=== PATIENT | male | born 1985 | race Caucasian/White ===

== ENCOUNTER 2017-04-24 11:43 | Outpatient (CLI) | payer BC ==
[2017-04-24 19:30] LABS: HCT - HEMATOCRIT 45.7 % (42.0-52.0); MEAN CORPUSCULAR HGB CONC 32.8 g/dL (32.0-36.0); MEAN CORPUSCULAR VOLUME 85.2 fL (80.0-94.0); MEAN PLATELET VOLUME 7.6 fL (7.4-11.4); RED BLOOD COUNT 5.37 10^6/uL (4.70-6.10); RED CELL DISTRIBUTION WIDTH 13.3 % (12.0-15.0)
[2017-04-24 22:03] LABS: WHITE BLOOD COUNT 9.1 x10^3/uL (4.8-10.8)
[2017-04-26 13:51] LABS: ANA SCREEN NEGATIVE (NEGATIVE)
== END 2017-04-24 11:44 | disposition home or self-care (01) ==
LOC: LAB.N 11:43
PROVIDERS: ATTEND Physician Assistant
DX: M79.643 Pain in unspecified hand (principal)
CPT/HCPCS: 36415; 85651; 86038; 86140; 86200; 86430

== ENCOUNTER 2017-04-24 14:02 | Outpatient (CLI) | payer BC ==
--- NOTE | 2017-04-25 09:18 | XRAY Report ---
BILATERAL THREE-VIEW HANDS: 04/24/2017 CLINICAL INDICATION: Bilateral hand pain. FINDINGS: AP, lateral, oblique views of the bilateral hands were obtained. There is mild osteoarthr itis at the right 1st carpometacarpal joint. There is no evidence of fracture or dislocation. The o ther joint spaces are preserved. IMPRESSION: MILD OSTEOARTHRITIS AT THE RIGHT 1ST CARPOMETACARPAL JOINT. JOB #: [id number] EXT JOB #:[id number]
== END 2017-04-24 14:03 | disposition home or self-care (01) ==
LOC: DI.N 14:02
PROVIDERS: ATTEND Physician Assistant
DX: M18.0 Bilateral primary osteoarthritis of first carpometacarpal joints (principal)

== ENCOUNTER 2019-05-15 10:26 | Outpatient (CLI) | payer BC ==
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
== END 2019-05-15 10:27 | disposition home or self-care (01) ==
LOC: DI 10:26
PROVIDERS: ATTEND Physician Assistant
DX: R07.89 Other chest pain (principal)
CPT/HCPCS: 71045; 71120

== ENCOUNTER 2019-11-06 23:05 | Emergency (ER) | payer OTHER, BC ==
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
[2019-11-07 02:32] VITALS: BP 138/102
[2019-11-07] MEDS ORDERED: ACETAMINOPHEN 325 MG TABLET PO STA (02:41)
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
== END 2019-11-07 03:37 | disposition home or self-care (01) ==
LOC: ED 23:05
DX: S06.0X9A Concussion with loss of consciousness of unspecified duration, initial encounter (principal); S16.1XXA Strain of muscle, fascia and tendon at neck level, initial encounter; V43.52XA Car driver injured in collision with other type car in traffic accident, initial encounter; W22.11XA Striking against or struck by driver side automobile airbag, initial encounter; Y92.410 Unspecified street and highway as the place of occurrence of the external cause; Y99.0 Civilian activity done for income or pay
CPT/HCPCS: 1040M; 70450; 72125; 99284; A9270

== ENCOUNTER 2020-06-05 22:34 | Emergency (ER) | payer BC ==
--- NOTE | 2020-06-05 22:38 | ED Physician Documentation ---
PD HPI ABD PAIN - Stated complaint Stated Complaint: ABD PX - History obtained from History obtained from: Patient - History of Present Illness Timing - onset: How many weeks ago (2-3 weeks) Timing - duration: Weeks (He had been having intermittent right upper quadrant pain after eating for 2 to 3 weeks. He had an ultrasound showing gallstones with minimal wall thickening. He has a surgical consult in the office for this coming week. However he has had increased pain and unable to eat the last wk) Timing - details: Gradual onset, Still present (Much increased and consistent symptoms for the last several days to a week and now 3 days of jaundice. He has been and unable to eater drink much fluids even due to the pain) Quality: Aching, Sharp, Pain Location: RUQ, Epigastric Radiation: Left shoulder, Upper back Improved by: Laying still. No: Eating Worsened by: Eating, Moving, Palpation. No: Breathing Associated symptoms: Nausea. No: Fever, Vomiting, Diarrhea, Dysuria Similar symptoms before: Has not had sx before Recently seen: Clinic (seen by urgent care ? and had U/S at [facility] showing gallstones with some wall thickening. Consult with GI and given referral to General Surgery.) Review of Systems Constitutional: reports: Myalgias, Fatigue. denies: Fever, Chills Nose: denies: Rhinorrhea / runny nose, Congestion Throat: denies: Sore throat Cardiac: denies: Chest pain / pressure Respiratory: denies: Cough GI: reports: Abdominal Pain, Nausea. denies: Abdominal Swelling, Vomiting, Diarrhea, Bloody / black stool Skin: denies: Rash, Lesions Musculoskeletal: denies: Neck pain, Back pain Neurologic: reports: Generalized weakness. denies: Near syncope PD PAST MEDICAL HISTORY - Past Medical History Cardiovascular: None Respiratory: None Neuro: None Endocrine/Autoimmune: None GI: None (just recent Dx of gallstone with biliary colic symptoms) - Present Medications Home Medications: Ambulatory Orders Medication Instructions Recorded Confirmed Embrel 150 mg PO 11/06/19 - Allergies Allergies/Adverse Reactions: Allergies Allergy/AdvReac Type Severity Reaction Status Date / Time No Known Drug Allergies Allergy Verified 06/05/20 22:48 PD ED PE NORMAL - Vitals Vital signs reviewed: Yes - General General: Alert and oriented X 3, Well developed/nourished, Other (appears uncomfortable upper abd pain) - HEENT HEENT: PERRL (icteric eyes), EOMI, Pharynx benign - Neck Neck: Supple, no meningeal sign, No adenopathy - Cardiac Cardiac: RRR, No murmur - Respiratory Respiratory: Clear bilaterally - Abdomen Abdomen: Soft, Non distended, No organomegaly, Other (decreased bowel sounds. He is moderately tender with guarding RUQ and epigastric area. Positive percussion tenderness and mild rebound. ) - Derm Derm: Warm and dry. No: Normal color (notable jaundice) - Extremities Extremities: No edema, No calf tenderness / cord - Neuro Neuro: Alert and oriented X 3, No motor deficit, Normal speech Results - Vitals Vitals: Vital Signs - 24 hr 06/05/20 06/06/20 22:40 01:00 Temperature 36.5 C Heart Rate 70 49 L Respiratory 17 14 Rate Blood Pressure 146/100 H 133/94 H O2 Saturation 98 98 Oxygen O2 Source Room air - Labs Labs: Laboratory Tests 06/05/20 06/05/20 23:45 23:45 WBC 5.8 RBC 5.03 Hgb 15.5 Hct 43.8 MCV 87.1 MCH 30.8 MCHC 35.4 RDW 12.3 Plt Count 243 MPV 9.2 Neut # (Auto) 3.0 Lymph # (Auto) 1.9 [place] # (Auto) 0.6 Eos # (Auto) 0.3 Baso # (Auto) 0.1 Absolute Nucleated RBC 0.00 Nucleated RBC % 0.0 Sodium 137 Potassium 3.7 Chloride 102 Carbon Dioxide 25 Anion Gap 10.0 BUN 12 Creatinine 0.9 Estimated GFR (MDRD) 96 Glucose 93 Calcium 9.3 Magnesium 2.2 Total Bilirubin 6.6 H Direct Bilirubin 4.0 H Indirect Bilirubin 2.6 AST 229 H ALT 628 H Alkaline Phosphatase 200 H Total Protein 7.8 Albumin 4.3 Globulin 3.5 Albumin/Globulin Ratio 1.2 Lipase 40 - Rads (name of study) abd U/S Radiology: Prelim report reviewed (acute cholecystitis with stones and sludge. Nonmobile gallstone within the bladder neck. wall 5 mm thickened with some pericholecystic fluid. CBD mildly dilated 7mm.), See rad report PD MEDICAL DECISION MAKING - ED course Complexity details: reviewed results (showing acute cholecystitis with CBD dilated at 7 mm. Presume ductal blockage. ), re-evaluated patient, considered differential (cholecystitis symptoms with now jaundice. Consider ductal stone/sludging versus cholangitis. He does not appear too sick though. To get labs and U/S. 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 Wilcox, Merged With [facility] surgery, who refers off due to need for ERCP. Talked with Dr. Stewart, GI at [facility], who says the pt does need ERCP and they do not do them at [facility]. Refers to [facility] or [place]. ) Departure - Departure Disposition: 02 Transfer Acute Care Hosp Clinical Impression: Acute cholecystitis due to biliary calculus, Bile duct obstruction, Upper abdominal pain Condition: Stable Record reviewed to determine appropriate education?: Yes
[2020-06-05] MEDS ORDERED: FAMOTIDINE 20 MG/2 ML SYRINGE IVP STA (23:01)
[2020-06-05] MEDS ORDERED: ONDANSETRON 4 MG/2 ML VIAL IVP STA (23:01)
[2020-06-05] MEDS ORDERED: SODIUM CHLORIDE 0.9% 1,000 ML IV STA (23:01)
[2020-06-05 23:53] LABS: BASOPHILS # (AUTO) 0.1 10^3/uL (0.0-0.1); BASOPHILS % (AUTO) 0.9 %; EOSINOPHILS # (AUTO) 0.3 10^3/uL (0.0-0.7); EOSINOPHILS % (AUTO) 4.7 %; HGB - HEMOGLOBIN 15.5 g/dL (14.0-18.0); LYMPHOCYTES # (AUTO) 1.9 10^3/uL (1.5-3.5); LYMPHOCYTES % (AUTO) 32.1 %; MEAN CORPUSCULAR HEMOGLOBIN 30.8 pg (27.0-31.0); MEAN CORPUSCULAR HGB CONC 35.4 g/dL (32.0-36.0); MEAN CORPUSCULAR VOLUME 87.1 fL (80.0-94.0); MEAN PLATELET VOLUME 9.2 fL (7.4-11.4); MONOCYTES # (AUTO) 0.6 10^3/uL (0.0-1.0); NEUTROPHILS % (AUTO) 52.1 %; PLT - PLATELET COUNT 243 10^3/uL (130-450); RED BLOOD COUNT 5.03 10^6/uL (4.70-6.10); RED CELL DISTRIBUTION WIDTH 12.3 % (12.0-15.0); WHITE BLOOD COUNT 5.8 x10^3/uL (4.8-10.8)
[2020-06-06 00:11] LABS: ALBUMIN 4.3 g/dL (3.2-5.5); ALBUMIN/GLOBULIN RATIO 1.2 (1.0-2.2); BILIRUBIN,INDIRECT 2.6 mg/dL; BILIRUBIN,TOTAL 6.6 mg/dL (0.2-1.0); CALCIUM 9.3 mg/dL (8.5-10.3); CREATININE 0.9 mg/dL (0.6-1.2); MAGNESIUM 2.2 mg/dL (1.7-2.8); TOTAL PROTEIN 7.8 g/dL (6.7-8.2)
[2020-06-06] MEDS ORDERED: AMPICILLIN/SULBACTAM 1.5 GM in SODIUM CHLORIDE 0.9% MINIBAG 100 ML IV STA (02:15)
[2020-06-06] MEDS ORDERED: LACTATED RINGERS 1,000 ML IV STA (02:15)
[2020-06-06] MEDS ORDERED: KETOROLAC 30 MG/ML VIAL IVP STA (02:16)
[2020-06-06 03:39] VITALS: BP 130/64
--- NOTE | 2020-06-06 08:35 | Ultrasound Report ---
PROCEDURE: Abdomen Limited INDICATIONS: RUQ pain and now jaundice; recent dx gallstones TECHNIQUE: Real-time focused scanning was performed of the abdomen, with image documentation. COMPARISON: None FINDINGS: Examination is limited by overlying bowel gas.Liver measures 14 cm and demonstrates diffus beronica increased echogenicity. Multiple calculi and sludge within the gallbladder lumen. Gallbladder is thickened measuring 5 mm in wall thickness. Small amount of pericholecystic fluid. Mild dilatation of the biliary tree. Common bile duct measures 7.3 mm. Pancreas is within normal limits. Right kidney m easures 10 cm without hydronephrosis. IMPRESSION: 1. Acute cholecystitis. 2. Biliary ductal dilatation which could indicate an obstructing stone or mass. This could be further assessed with MRCP, if clinically indicated. 3. Concordant with preliminary. Reviewed by: Mitesh Ghotra MD on 06/06/2020 8:34 AM PDT Approved by: Mitesh Ghotra MD on 06/06/2020 8:34 AM PDT Station ID: [id number]
== END 2020-06-06 03:43 | disposition short-term general hospital (02) ==
LOC: ED 22:34
DX: K80.01 Calculus of gallbladder with acute cholecystitis with obstruction (principal)
CPT/HCPCS: 36415; 76705; 80053; 82247; 82248; 83690; 83735; 85025; 96361; 96365; 96375; 99284; 99285; J7120